=== PATIENT | female | born 1970 | race Caucasian/White ===

== ENCOUNTER 2016-05-14 10:40 | Outpatient (CLI) ==
[2014-07-10 04:29] VITALS: BMI 42.3
[2016-05-14 11:30] LABS: BASOPHILS % (AUTO) 0.4 % (0.0-3.0); EOSINOPHILS % (AUTO) 0.4 % (0.0-7.0); HEMATOCRIT 36.7 % (37.0-47.0); HEMOGLOBIN 12.4 g/dl (12.0-16.0); IMMATURE GRANULOCYTE % (AUTO) 0.2 % (0.0-5.0); LYMPHOCYTES # (AUTO) 1.3 K/uL (0.60-3.4); LYMPHOCYTES % (AUTO) 27.2 (10.0-50.0); MEAN CORPUSCULAR HEMOGLOBIN 29.6 pg (27.0-31.0); MEAN CORPUSCULAR HGB CONC 33.8 (31.8-35.4); MEAN CORPUSCULAR VOLUME 87.6 fl (81.0-99.0); MONOCYTES # (AUTO) 0.4 K/uL (0.4-2.0); MONOCYTES % (AUTO) 8.5 (0-10); NEUTROPHILS # (AUTO) 3.1 K/ul (2.0-6.9); NEUTROPHILS % (AUTO) 63.3; PLATELET COUNT 283 10^3/uL (140-440); RED BLOOD COUNT 4.19 10^6/ul (4.20-5.40); WHITE BLOOD COUNT 4.85 K/ul (4.6-10.2)
[2016-05-14 12:08] LABS: ALBUMIN 3.9 g/dL (3.4-5.0); ALBUMIN/GLOBULIN RATIO 1.15; ANION GAP 11.1; BILIRUBIN,TOTAL 0.58 mg/dL (0.00-1.20); BUN/CREATININE RATIO 12.19; CHOL/HDL RATIO 3.9 (4.5-5.5); CREATININE 0.82 mg/dL (0.60-1.30); POTASSIUM 4.1 mmol/L (3.5-5.10); TOTAL PROTEIN 7.3 g/dL (6.4-8.2)
== END 2016-05-14 10:41 | disposition home or self-care (01) ==
LOC: LAB 10:40
PROVIDERS: ATTEND Nurse Practitioner Family
DX: E66.3 Overweight (principal); F32.9 Major depressive disorder, single episode, unspecified; E03.9 Hypothyroidism, unspecified
CPT/HCPCS: 36415; 80053; 80061; 84443; 85025

== ENCOUNTER 2017-07-20 14:54 | Outpatient (CLI) ==
[2014-07-10 04:29] VITALS: BMI 42.3
== END 2017-07-20 14:55 | disposition home or self-care (01) ==
LOC: RHC-LAB 14:54
PROVIDERS: ATTEND Nurse Practitioner Family
DX: Z00.00 Encounter for general adult medical examination without abnormal findings (principal); E03.9 Hypothyroidism, unspecified
CPT/HCPCS: 36415; 80053; 80061; 84443; 85025

== ENCOUNTER 2017-07-21 12:44 | Outpatient (CLI) ==
[2014-07-10 04:29] VITALS: BMI 42.3
--- NOTE | 2017-07-22 11:34 | MAMMO ---
EXAM: Digital screening mammogram with tomosynthesis HISTORY: Screening COMPARISON: 06/23/2015 FINDINGS: Digital MLO and CC views of the right and left breast were performed. Tomosynthesis was p erformed. Computer aided detection utilized. There are scattered fibroglandular densities. There is no evidence for mass, asymmetry, distortion, or suspicious calcifications in either breast. IMPRESSION: 1. No evidence of malignancy in the right or left breast. 2. Annual screening mammogram is recommended in one year. BIRADS category 1, negative examination
== END 2017-07-21 12:45 | disposition home or self-care (01) ==
LOC: RAD 12:44
PROVIDERS: ATTEND Nurse Practitioner Family
DX: Z12.31 Encounter for screening mammogram for malignant neoplasm of breast (principal)
CPT/HCPCS: 77067

== ENCOUNTER 2018-08-09 10:19 | Outpatient (CLI) ==
[2014-07-10 04:29] VITALS: BMI 42.3
--- NOTE | 2018-08-09 10:55 | US ---
EXAM: Thyroid ultrasound. History: Hypothyroid Technique: Multiple sonographic images through the thyroid gland were obtained. Color duplex Dopple r was used to interrogate vascular flow. Findings: The right lobe of the thyroid measures 5.0 cm x 1.3 cm x 1.7 cm and demonstrates a 0.6 cm complex nod ule. 2.4 cm x 1.0 cm x 0.9 cm solid nodule versus heterogeneous thyroid tissue. The thyroid isthmus measures 0.3 cm in thickness. The left lobe of the thyroid measures 4.7 cm x 1.0 cm x 1.3 cm and demonstrates a 0.6 cm solid nodule . No extrathyroidal masses are identified. The thyroid gland is not significantly hypervascular. Impression: 1. Normal sized heterogeneous thyroid gland. 2. Bilateral thyroid nodules as detailed above. Recommend follow-up ultrasound in 6 months.
== END 2018-08-09 10:20 | disposition home or self-care (01) ==
LOC: RAD 10:19
PROVIDERS: ATTEND Nurse Practitioner Family
DX: E03.9 Hypothyroidism, unspecified (principal)

== ENCOUNTER 2018-08-10 10:07 | Outpatient (CLI) ==
[2014-07-10 04:29] VITALS: BMI 42.3
--- NOTE | 2018-08-11 10:42 | MAMMO ---
EXAM: Bilateral digital screening mammogram (2-D and 3-D) History: Screening Comparison: Bilateral mammogram 07/21/2017 Findings: MLO and CC views of bilateral breasts demonstrate scattered fibroglandular breast parenchy ma. CAD was reviewed by the radiologist. Tomosynthesis was performed. There are no dominant masses , no suspicious microcalcifications and no architectural distortion. Impression: Stable negative mammogram. Recommend followup routine screening mammography in 1 year. BIRADS 1, negative
== END 2018-08-10 10:08 | disposition home or self-care (01) ==
LOC: RAD 10:07
PROVIDERS: ATTEND Nurse Practitioner Family
DX: Z12.31 Encounter for screening mammogram for malignant neoplasm of breast (principal)

== ENCOUNTER 2024-03-23 01:05 | Observation (INO) ==
[2024-03-23] MEDS ORDERED: MOTRIN PO STA (01:19)
--- NOTE | 2024-03-23 01:23 | ED.PDOC ---
General ED Provider: Dr. BELEM HUMPHREY MD Chief Complaint: Fever Stated Complaint: Patient presents to ER from home accompanied by her son complaining of flulike symptoms: headache, congestion, all over body aches, increased thirst and urination. Reports onset was approximately 4 days ago (day after traveling to/from [place] on the train) and initially were improving however earlier today symptoms started to abruptly worsen especially around 3pm today. Says that she took Motrin 400 mg at 8 PM but symptoms continued to worsen so decided to present to nearest ER after PCP clinic instructed her to do so. No other complaints at this time. Time Seen by Provider: 03/23/24 01:14 Mode of Arrival: Walk-In Information Source: Patient Exam Limitations: No limitations Primary Care Provider: HARIKA BROOKS Referred to ED by: PCP Nursing and Triage Documentation Reviewed and Agree: Yes What is Opioid Naive?: *Opioid Naive implies the patient is not already taking opioids or not chronically receiving opioids on a daily basis. *PRN dosing is not "usually" associated with tolerance. *Patients are at higher risk of over-sedation and aspiration. What is Opioid Tolerant?: *Opioid Tolerance implies less than the expected response to an opioid. *Acquired tolerance is defined by the patient taking 60mg of oral morphine daily (or equianalgesic dose of another opioid) for 1 week or more. *Often associated with chronic pain. *May take more than usual dose to achieve desired pain control. Review of Systems Review Of Systems Constitutional: Reports Fever and Malaise All Other Systems: Reviewed and Negative (Except for those listed in the HPI above.) [facility] Medical History (Updated 03/23/24 @ 05:02 by LEROY ARGUELLO RN) Hypothyroid E03.9 - Hypothyroidism, unspecified (ICD-10) Hypertension I10 - Essential (primary) hypertension (ICD-10) Calculus of kidney N20.0 - Calculus of kidney (ICD-10) Depression F32.9 - Major depressive disorder, single episode, unspecified (ICD-10) Family History FATHER Type 1 diabetes mellitus Lung cancer, Onset Age: 62 Mother Type 1 diabetes mellitus, Onset Age: 30 Hyperlipidemia, Onset Age: 30 Hypothyroidism Hypertension Anxiety Depression Social History Smoking and tobacco status: Never smoker Alcohol intake: never Substance use type: does not use Angela/jainism: EPISCOPAL Special angela needs: No Agree to transfusion: Yes Adopted: No Caregiver/support person: No Foster care: No Household members: family Housing: house Marital status: M Lives independently: Yes Number of children: 3 Number of grandchildren: 4 Highest education level completed: high school graduate Financial difficulty paying for basics: hard service: No CHCF: No Current occupational status: unemployed Pets and animals: Yes Leisure activites: art and reading History of recent travel: No Sexually active: Yes Do you think of yourself as: straight/heterosexual Current gender identity: female Seatbelt use: always Drives intoxicated or rides with intoxicated milk pickup driver: No Water heater temperature set < 120 degrees: Yes Working smoke detector in home: Yes Fire extinguisher in home: No Carbon monoxide detector in home: No Firearms in home: No Surgical History History of surgery Lipoma right upper chest Z98.890 - Other specified postprocedural states (ICD-10) Status post hysterectomy 2009 Z90.710 - Acquired absence of both cervix and uterus (ICD-10) Female Reproductive History Menstrual Hx Hysterectomy: Yes Hx Tubal Ligation: No Physical Exam Physical Exam Appearance: Reports Ill-appearing, No pain distress and Well-nourished Ill-appearing: Moderate Pain Distress: None Eyes: Reports ROGELIO, EOMI and Conjunctiva clear ENT: Reports Ears normal, Nose normal and Oropharynx normal Neck: Supple Respiratory: Reports Airway patent, Breath sounds equal, Breath sounds diminished (R>L) and Respirations nonlabored Cardiovascular: Reports RRR, Pulses normal, No rub and No murmur GI/: Reports Soft and Nontender Musculoskeletal: Reports Normal strength and ROM intact Skin: Reports Warm, Dry and Normal color Neurological: Reports Sensation intact, Motor intact, Alert and Oriented Psychiatric: Reports Affect appropriate and Mood appropriate Course Course 03/23/24 01:35 03/23/24 01:35 Orders, Labs, Meds: Lab Review 03/23/24 03/23/24 03/23/24 01:30 01:35 01:50 WBC 10.84 H RBC 4.17 L Hgb 11.5 L Hct 35.4 L MCV 84.9 MCH 27.6 MCHC 32.5 RDW Coeff of Olesya 13.8 Plt Count 284 Immature Gran % (Auto) 1.0 Neut % (Auto) 85.4 H Lymph % (Auto) 5.8 L Hickman % (Auto) 7.5 Eos % (Auto) 0.0 Baso % (Auto) 0.3 Neut # (Auto) 9.3 H Lymph # (Auto) 0.6 Hickman # (Auto) 0.8 Eos # (Auto) 0.0 Baso # (Auto) 0.0 Immature Gran # (Auto) 0.1 Sodium 130.6 L Potassium 3.66 Chloride 96.9 L Carbon Dioxide 24.2 Anion Gap 13.16 BUN 7.6 Creatinine 0.65 Estimated GFR (MDRD) 96.00 BUN/Creatinine Ratio 11.69 Glucose 139.3 H Lactic Acid 1.01 Calcium 8.50 Total Bilirubin 1.01 AST 455.0 H ALT 321.1 H Alkaline Phosphatase 320.5 H Troponin I < 0.012 Total Protein 6.72 Albumin 3.35 L Globulin 3.37 Albumin/Globulin Ratio 0.99 Procalcitonin 1.31 H D-Dimer 2122.57 H Urine Color Dark Urine Clarity Slightly Urine pH 6.0 Ur Specific [place] >=1.030 Urine Protein 3+ H Urine Glucose (UA) Negative Urine Ketones 2+ H Urine Blood 1+ H Urine Nitrite Negative Urine Bilirubin 2+ H Urine Urobilinogen 1.0 H Ur Leukocyte Esterase Negative Urine Microscopic RBC 2-5 Urine Microscopic WBC 0-2 Ur Squamous Epith Cells 5-10 Amorphous Sediment 2+ Urine Bacteria 1+ Urine Mucus 1+ Adenovirus (PCR) B. pertussis DNA (PCR) B.parapertussis DNA PCR C. pneumoniae DNA (PCR) Coronavirus OC43 (PCR) Coronavirus HKU1 (PCR) Coronavirus 229E (PCR) Coronavirus NL63 (PCR) Human Metapneumovir PCR Influenza Type A (PCR) Influ A Molecular Assay Negative by naat Influenza B (RT-PCR) Influ B Molecular Assay Negative by naat M. pneumoniae (PCR) Parainfluenza 1 (PCR) Parainfluenza 2 (PCR) Parainfluenza 3 (PCR) Parainfluenza 4 (PCR) RSV Antigen Negative by naat RSV (PCR) Entero/Rhino (PCR) SARS-CoV-2 (PCR) SARS CoV-2 RNA Rapid CHRISTO Negative 03/23/24 02:40 WBC RBC Hgb Hct MCV MCH MCHC RDW Coeff of Olesya Plt Count Immature Gran % (Auto) Neut % (Auto) Lymph % (Auto) Hickman % (Auto) Eos % (Auto) Baso % (Auto) Neut # (Auto) Lymph # (Auto) Hickman # (Auto) Eos # (Auto) Baso # (Auto) Immature Gran # (Auto) Sodium Potassium Chloride Carbon Dioxide Anion Gap BUN Creatinine Estimated GFR (MDRD) BUN/Creatinine Ratio Glucose Lactic Acid Calcium Total Bilirubin AST ALT Alkaline Phosphatase Troponin I Total Protein Albumin Globulin Albumin/Globulin Ratio Procalcitonin D-Dimer Urine Color Urine Clarity Urine pH Ur Specific [place] Urine Protein Urine Glucose (UA) Urine Ketones Urine Blood Urine Nitrite Urine Bilirubin Urine Urobilinogen Ur Leukocyte Esterase Urine Microscopic RBC Urine Microscopic WBC Ur Squamous Epith Cells Amorphous Sediment Urine Bacteria Urine Mucus Adenovirus (PCR) Not detected B. pertussis DNA (PCR) Not detected B.parapertussis DNA PCR Not detected C. pneumoniae DNA (PCR) Not detected Coronavirus OC43 (PCR) Not detected Coronavirus HKU1 (PCR) Not detected Coronavirus 229E (PCR) Not detected Coronavirus NL63 (PCR) Not detected Human Metapneumovir PCR Not detected Influenza Type A (PCR) Not detected Influ A Molecular Assay Influenza B (RT-PCR) Not detected Influ B Molecular Assay M. pneumoniae (PCR) Not detected Parainfluenza 1 (PCR) Not detected Parainfluenza 2 (PCR) Not detected Parainfluenza 3 (PCR) Not detected Parainfluenza 4 (PCR) Not detected RSV Antigen RSV (PCR) Not detected Entero/Rhino (PCR) Not detected SARS-CoV-2 (PCR) Not detected SARS CoV-2 RNA Rapid CHRISTO Orders Category Date Time Status ADMIT OBSERVATION [PLACE PATIENT OBSERVATION] .TO ADMISSION 03/23/24 04:20 Active MEDSURG (MONITORED BED) NPO REMINDER: IMAGING ONCE CARE 03/23/24 02:28 Completed TELEMETRY MONITORING TELE CARE 03/23/24 04:20 Active ED APPLY O2 .ONCE EMERGENCY 03/23/24 01:20 Active ED MIDDLE SCHOOL COUNSELOR APPLIED .ONCE EMERGENCY 03/23/24 01:20 Active ED VITAL SIGNS .ONCE EMERGENCY 03/23/24 01:20 Active BLOOD CULTURE Stat LAB 03/23/24 02:30 Received CBC W/ AUTO DIFF Stat LAB 03/23/24 01:35 Completed COMPREHENSIVE METABOLIC PANEL Stat LAB 03/23/24 01:35 Completed D-DIMER Stat LAB 03/23/24 01:35 Completed FLU A & B MOLECULAR [FLU A/B MOLECULAR] Stat LAB 03/23/24 01:30 Completed LACTIC ACID Stat LAB 03/23/24 01:35 Completed PROCALCITONIN Stat LAB 03/23/24 01:35 Completed RESPIRATORY PANEL 2.1 (PCR) Stat LAB 03/23/24 02:40 Completed RSV Stat LAB 03/23/24 01:30 Completed SARS COV-2 RNA RAPID CHRISTO Stat LAB 03/23/24 01:30 Completed TROPONIN I Stat LAB 03/23/24 01:35 Completed URINALYSIS C & S IF INDICATED Stat LAB 03/23/24 01:50 Completed URINE CULTURE Stat LAB 03/23/24 01:50 Received Acetaminophen [Tylenol] Meds 03/23/24 01:23 Discontinued 1,000 mg PO ONCE STA Cefepime 2 gm/D5w [Maxipime 2 gm/50 ml D5w] Meds 03/23/24 02:14 Discontinued 2 gm in 50 ml IV ONCE Iohexol [Omnipaque 350 mg/ml 100Ml] Meds 03/23/24 02:41 Discontinued 100 ml IVP ONCE ONE Ketorolac Tromethamine [Toradol] Meds 03/23/24 02:42 Discontinued 30 mg IVP ONCE STA Ondansetron HCl/Pf [Zofran Sdv] Meds 03/23/24 02:52 Discontinued 4 mg IVP ONCE STA Sodium Chloride 0.9% [Sodium Chloride] 1,000 ml Meds 03/23/24 02:02 Discontinued IV BOLUS CHEST, 2 VIEWS PA & LAT Stat RADS 03/23/24 01:20 Completed CTA CHEST PE PROTOCOL Stat RADS 03/23/24 02:28 Completed Medications Generic Name Dose Route Start Last Admin Trade Name Freq PRN Reason Stop Dose Admin Acetaminophen 650 mg 03/23/24 06:34 Acetaminophen 325 Mg Tablet PO Q4H PRN Mild Pain Azithromycin 500 mg 03/23/24 09:00 Azithromycin 250 Mg Tablet PO 03/26/24 08:59 DAILY KIRK Sodium Chloride 1,000 mls @ 100 mls/hr 03/23/24 07:00 Sodium Chloride IV .Q10H KIRK CEFTRIAXONE/D5W 1 GM PREMIX 1 gm in 50 mls @ 100 mls/hr 03/23/24 07:00 Rocephin 1 Gm/50 Ml D5w IV 03/26/24 06:59 DAILY KIRK Discontinued Medications Generic Name Dose Route Start Last Admin Trade Name Freq PRN Reason Stop Dose Admin Acetaminophen 1,000 mg 03/23/24 01:23 03/23/24 01:42 Acetaminophen 500 Mg Tablet PO 03/23/24 01:24 1,000 mg ONCE STA Administration Sodium Chloride 1,000 mls @ 1,000 mls/hr 03/23/24 02:02 03/23/24 03:00 Sodium Chloride IV 03/23/24 03:01 Infused BOLUS STA Infusion CEFEPIME 2 GM/D5W 2 gm in 50 mls @ 100 mls/hr 03/23/24 02:14 03/23/24 03:03 Maxipime 2 Gm/50 Ml D5w IV 03/23/24 02:43 100 mls/hr ONCE STA Administration Iohexol 100 ml 03/23/24 02:41 03/23/24 02:51 Iohexol 350 Mg/Ml 100ml IVP 03/23/24 02:42 100 ml ONCE ONE Administration Ketorolac Tromethamine 30 mg 03/23/24 02:42 03/23/24 03:04 Ketorolac Tromethamine 30 Mg/Ml Vial IVP 03/23/24 02:43 30 mg ONCE STA Administration Ondansetron HCl 4 mg 03/23/24 02:52 03/23/24 03:03 Ondansetron Hcl/Pf 4 Mg/2 Ml Sdv IVP 03/23/24 02:53 4 [place] [address] Diagnostic Imaging Diagnostic Imaging Report : [id number] Signed Patient: PHILLIP PULIDO Acct:[id number] Medical Record: [id number] : 1970 Loc: ED Room/Bed: Age/Sex: 53 / F ADM Status: REG ER Date of Service: 03/23/24 Ordering Physician: BELEM HUMPHREY MD Procedure(s): CHEST, 2 VIEWS PA & LAT Report Number(s): [id number] Accession Number(s): [id number] cc: HARIKA BROOKS ; BELEM HUMPHREY MD EXAM: TWO-VIEW CHEST HISTORY: Shortness of breath COMPARISON: none FINDINGS / impression:: The cardiomediastinal silhouette is normal.. Peripheral consolidation is seen within the lingula. There is a small right pleural effusion. Dense consolidation is seen within the right middle lobe and lower lobe. No acute osseous abnormalities. Dictated By: KEVAN DOSHI Signed By: KEVAN DOSHI Dictated Date/Time: 03/23/24352 Transcribed Date/Time: 03/23/24352 Signed Date/Time: 03/23/24 [address] [place] [address] Report : [id number] Signed Patient: PHILLIP PULIDO Acct:[id number] Medical Record: [id number] : 1970 Loc: ED Room/Bed: Age/Sex: 53 / F ADM Status: REG ER Date of Service: 03/23/24 Ordering Physician: BELEM HUMPHREY MD Procedure(s): CTA CHEST PE PROTOCOL Report Number(s): [id number] Accession Number(s): [id number] cc: HARIKA BROOKS NICOLE MD EXAM: CTA CHEST HISTORY: Dyspnea COMPARISON: None. FINDINGS: Postcontrast helical imaging was obtained through the thorax utilizing 1.2-mm collimation. Sagittal and coronal reconstructions were imaged and reviewed. There are subcentimeter prevascular and pretracheal lymph nodes. There is a 12 mm right hilar lymph node. Subcarinal lymphadenopathy measures upwards of 1.6 cm. The ascending aorta is ectatic measuring 3.4 cm. There is no evidence of pulmonary embolus. There is a small right pleural effusion which extends into the fissure with adjacent consolidation . Peripheral consolidation is seen within the left upper lobe and lingula. . Consolidation/atelectasis is seen predominately in the right middle with milder changes in the lower lobe.. Bone windows reveals no lytic or blastic lesions. IMPRESSION: No evidence of pulmonary embolus. Small right pleural effusion with fissural extension. Mild adjacent consolidation/pneumonia Peripheral consolidation/pneumonia seen within the left upper lobe and lingula. Consolidation/atelectasis seen predominately in the right middle lobe with mild lower lobe changes. Mediastinal and hilar lymphadenopathy likely reactive in nature. All CT scans are performed using dose optimization techniques as appropriate to the performed exam and include at least one of the following: Automated exposure control, adjustment of the mA and/or kV according to size, and the use of iterative reconstruction technique. Dictated By: KEVAN DOSHI Signed By: KEVAN DOSHI Dictated Date/Time: 03/23/24312 Transcribed Date/Time: 03/23/24312 Signed Date/Time: 03/23/24336 Vital Signs: Temp Pulse Resp BP Pulse Ox 03/23/24 01:07 101.0 F H 97 20 144/84 H 95 04:16 -spoke with on-call hospitalist (Gracie Hastings NP) regarding patient's status and current workup and management for community-acquired pneumonia, hyponatremia, transaminitis. Pt is ill-appearing with R>L diminished breath sounds. Hemodynamically stable with fever noted on exam. Labs remarkable for WBC 10.8, Na 131, Cl 97, AST 455, ALT 321, ALP 321, Procal 1.31, D-dimer 2122. Patient given Acetaminophen 1000, Toradol 30, NS 1L bolus, Cefepime 2g, Zofran 4 and is feeling somewhat better. Hospitalist agreed to admission for further workup and management. 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
[2024-03-23 01:41] LABS: BASOPHILS % (AUTO) 0.3 % (0.0-3.0); HEMATOCRIT 35.4 % (37.0-47.0); HEMOGLOBIN 11.5 g/dl (12.0-16.0); IMMATURE GRANULOCYTE # (AUTO) 0.1 (0.0-1.0); LYMPHOCYTES # (AUTO) 0.6 K/uL (0.60-3.4); LYMPHOCYTES % (AUTO) 5.8 (10.0-50.0); MEAN CORPUSCULAR HEMOGLOBIN 27.6 pg (27.0-31.0); MEAN CORPUSCULAR HGB CONC 32.5 (31.8-35.4); MEAN CORPUSCULAR VOLUME 84.9 fl (81.0-99.0); MONOCYTES # (AUTO) 0.8 K/uL (0.4-2.0); MONOCYTES % (AUTO) 7.5 (0-10); NEUTROPHILS # (AUTO) 9.3 K/ul (2.0-6.9); NEUTROPHILS % (AUTO) 85.4 % (42.2-75.2); PLATELET COUNT 284 10^3/uL (140-440); RDW COEFFICIENT OF VARIATION 13.8 % (11.6-14.8); RED BLOOD COUNT 4.17 10^6/ul (4.20-5.40); WHITE BLOOD COUNT 10.84 K/ul (4.6-10.2)
[2024-03-23] MEDS: TYLENOL PO STA (01:42)
[2024-03-23 01:54] LABS: ALANINE AMINOTRANSFERASE 321.1 U/L (0-35); ALBUMIN 3.35 g/dL (3.5-5.0); ALKALINE PHOSPHATASE 320.5 U/L (38-126); BILIRUBIN,TOTAL 1.01 mg/dL (0.2-1.3); BLOOD UREA NITROGEN 7.6 mg/dL (7-17); CALCIUM 8.5 mg/dL (8.4-10.2); CARBON DIOXIDE 24.2 mmol/L (22-30.0); CHLORIDE 96.9 mmol/L (98-107); CREATININE 0.65 mg/dL (0.60-1.30); GLUCOSE 139.3 mg/dL (74-106); POTASSIUM 3.66 mmol/L (3.5-5.1); SODIUM 130.6 mmol/L (134.5-145); TOTAL PROTEIN 6.72 g/dL (6.3-8.2)
[2024-03-23 01:55] LABS: BILIRUBIN,URINE 2+ (NEGATIVE); CLARITY,URINE Slightly (CLEAR); COLOR,URINE Dark (YELLOW); GLUCOSE, URINE (UA) Negative (NEGATIVE); KETONES,URINE 2+ (NEGATIVE); LEUKOCYTE ESTERASE ,URINE Negative (NEGATIVE); NITRITE,URINE Negative (NEGATIVE); PROTEIN,URINE 3+ (NEGATIVE); URINE, BLOOD 1+ (NEGATIVE)
[2024-03-23 02:00] LABS: AMORPHOUS SEDIMENT,UR 2+ (NOT PRESENT); BACTERIA,URINE 1+ (NOT PRESENT); MUCUS,URINE 1+ (NOT PRESENT); URINE WBC, MICROSCOPIC 0-2 (0-2)
[2024-03-23] MEDS: SODIUM CHLORIDE 1,000 ML IV STA (02:00)
[2024-03-23 02:03] LABS: MOLECULAR FLU A NEGATIVE BY NAAT (NEGATIVE); MOLECULAR FLU B NEGATIVE BY NAAT (NEGATIVE); RSV MOLECULAR NEGATIVE BY NAAT (NEGATIVE); SARS COV-2 RNA RAPID NAAT NEGATIVE (NEGATIVE)
[2024-03-23] MEDS: OMNIPAQUE 350 MG/ML 100ML IVP ONE (02:51)
[2024-03-23] MEDS: ZOFRAN SDV IVP STA (03:03)
[2024-03-23] MEDS: MAXIPIME 2 GM/50 ML D5W 2 GM/50 ML BAG IV STA (03:03)
[2024-03-23] MEDS: TORADOL IVP STA (03:04)
[2024-03-23 03:37] LABS: ADENOVIRUS (PCR) NOT DETECTED (NOT DETECT); BORDETELLA PARAPERTUSSIS (PCR) NOT DETECTED (NOT DETECT); BORDETELLA PERTUSSIS (PCR) NOT DETECTED (NOT DETECT); CHLAMYDIA PNEUMONIAE (PCR) NOT DETECTED (NOT DETECT); CORONAVIRUS 229E (PCR) NOT DETECTED (NOT DETECT); CORONAVIRUS HKU1 (PCR) NOT DETECTED (NOT DETECT); CORONAVIRUS NL63 (PCR) NOT DETECTED (NOT DETECT); CORONAVIRUS OC43 (PCR) NOT DETECTED (NOT DETECT); HUMAN METAPNEUMOVIRUS (PCR) NOT DETECTED (NOT DETECT); HUMAN RHINOVIRUS/ENTEROV (PCR) NOT DETECTED (NOT DETECT); INFLUENZA B (PCR) NOT DETECTED (NOT DETECT); MYCOPLASMA PNEUMONIAE (PCR) NOT DETECTED (NOT DETECT); PARAINFLUENZA VIRUS 1 (PCR) NOT DETECTED (NOT DETECT); PARAINFLUENZA VIRUS 2 (PCR) NOT DETECTED (NOT DETECT); PARAINFLUENZA VIRUS 3 (PCR) NOT DETECTED (NOT DETECT); PARAINFLUENZA VIRUS 4 (PCR) NOT DETECTED (NOT DETECT); RESPIRATORY SYNCYTIAL V (PCR) NOT DETECTED (NOT DETECT); SARS_COV_2 (PCR) NOT DETECTED (NOT DETECT)
--- NOTE | 2024-03-23 03:37 | CT ---
EXAM: CTA CHEST HISTORY: Dyspnea COMPARISON: None. FINDINGS: Postcontrast helical imaging was obtained through the thorax utilizing 1.2-mm collimation. Sagittal and coronal reconstructions were imaged and reviewed. There are subcentimeter prevascular and pretracheal lymph nodes. There is a 12 mm right hilar lymph node. Subcarinal lymphadenopathy m easures upwards of 1.6 cm. The ascending aorta is ectatic measuring 3.4 cm. There is no evidence of p ulmonary embolus. There is a small right pleural effusion which extends into the fissure with adjace nt consolidation . Peripheral consolidation is seen within the left upper lobe and lingula. . Conso lidation/atelectasis is seen predominately in the right middle with milder changes in the lower lobe. . Bone windows reveals no lytic or blastic lesions. IMPRESSION: No evidence of pulmonary embolus. Small right pleural effusion with fissural extension. Mild adjacent consolidation/pneumonia Peripheral consolidation/pneumonia seen within the left upper lobe and lingula. Consolidation/atelectasis seen predominately in the right middle lobe with mild lower lobe changes. Mediastinal and hilar lymphadenopathy likely reactive in nature. All CT scans are performed using dose optimization techniques as appropriate to the performed exam an d include at least one of the following: Automated exposure control, adjustment of the mA and/or kV according t o size, and the use of iterative reconstruction technique.
--- NOTE | 2024-03-23 04:01 | DI ---
EXAM: TWO-VIEW CHEST HISTORY: Shortness of breath COMPARISON: none FINDINGS / impression:: The cardiomediastinal silhouette is normal.. Peripheral consolidation is se en within the lingula. There is a small right pleural effusion. Dense consolidation is seen within t he right middle lobe and lower lobe. No acute osseous abnormalities.
[2024-03-23 05:18] VITALS: BMI 40.4
[2024-03-23] MEDS ORDERED: ROCEPHIN 1 GM/50 ML D5W 1 GM/50 ML BAG IV SCH (07:00)
[2024-03-23] MEDS: ZITHROMAX PO SCH (08:22)
[2024-03-23] MEDS: SODIUM CHLORIDE 1,000 ML IV SCH ×2 (08:23→10:06)
[2024-03-23] MEDS: DUONEB NEB SCH (08:45)
[2024-03-23] MEDS: TYLENOL PO PRN (09:05)
[2024-03-23] MEDS: SYNTHROID PO SCH (09:05)
[2024-03-23] MEDS: LEXAPRO PO SCH (09:05)
[2024-03-23] MEDS: TORADOL IVP PRN (09:48)
[2024-03-23] MEDS: ZOFRAN SDV IVP PRN (09:49)
[2024-03-23] MEDS: LASIX IVP ONE (09:49)
--- NOTE | 2024-03-23 09:54 | PCM ---
Date of Service Date Seen by Provider: 03/23/24 Time Seen by Provider: 08:45 Admit Day/Time Admission Date: 03/23/24 Admission Time: 04:20 Reason for Admission Chief Complaint: PNA, HYPONATREMIA, ELEVATED LFTS Hospital Provider Hospital Provider: KAITLYN ANDERSON, [facility] [place] Physician Primary Care Physician: HARIKA BROOKS History of Present Illness History of Present Illness: 53 yo female presented to the ER with complaints of fever, shortness of breath, cough, body aches, and chest pressure when she takes a breath. States that she went to [place] 4-5 days ago and has been sick since. States cough is nonproductive and just blanco in her chest. Fever has been as high as 101. Treated with tylenol. Found to have R upper lobe pneumonia on chest x-ray and new small pleural effusion on the left. Has taken BP medication in the past for htn but does not currently. No history of HF. Admitted to med/surg observation Case Discussed With Case Discussed With: Patient's case was discussed with the ER Physicians, Dr. Lima. [facility] Medical History Hypothyroid E03.9 - Hypothyroidism, unspecified (ICD-10) Hypertension I10 - Essential (primary) hypertension (ICD-10) Calculus of kidney N20.0 - Calculus of kidney (ICD-10) Depression F32.9 - Major depressive disorder, single episode, unspecified (ICD-10) Surgical History History of surgery Lipoma right upper chest Z98.890 - Other specified postprocedural states (ICD-10) Status post hysterectomy 2009 Z90.710 - Acquired absence of both cervix and uterus (ICD-10) Family History FATHER Type 1 diabetes mellitus Lung cancer, Onset Age: 62 Mother Type 1 diabetes mellitus, Onset Age: 30 Hyperlipidemia, Onset Age: 30 Hypothyroidism Hypertension Anxiety Depression Social History Smoking and tobacco status: Never smoker Alcohol intake: never Substance use type: does not use Angela/zoroastrian: SYNAGOGUE Special angela needs: No Agree to transfusion: Yes Adopted: No Caregiver/support person: No Foster care: No Household members: family Housing: house Marital status: M Lives independently: Yes Number of children: 3 Number of grandchildren: 4 Highest education level completed: high school graduate Financial difficulty paying for basics: hard service: No correction: No Current occupational status: unemployed Pets and animals: Yes Leisure activites: art and reading History of recent travel: No Sexually active: Yes Do you think of yourself as: straight/heterosexual Current gender identity: female Seatbelt use: always Drives intoxicated or rides with intoxicated fire truck driver: No Water heater temperature set < 120 degrees: Yes Working smoke detector in home: Yes Fire extinguisher in home: No Carbon monoxide detector in home: No Firearms in home: No Allergies Allergies Allergy/AdvReac Type Severity Reaction Status Date / Time clonidine AdvReac Intermediate Chest Verified 03/23/24 01:15 Tightness Current Medications Home Medications levothyroxine 50 mcg tablet (Synthroid) 50 mcg PO DAILY #90 tab-caps 07/20/17 [History Confirmed 03/23/24 Last Taken 03/22/24] folic acid 1 mg tablet 1 mg PO QDAY 02/13/20 [History Confirmed 03/23/24 Last Taken 03/22/24] berberine chloride 500 mg capsule 500 mg PO DAILY 01/25/24 [History Confirmed 03/23/24 Last Taken 03/22/24] dextroamphetamine-amphetamine 20 mg tablet (Adderall) 20 mg PO BID #60 tabs 01/25/24 [Rx Confirmed 03/23/24 Last Taken 03/22/24] escitalopram oxalate 20 mg tablet 20 mg PO QDAY #30 tabs 01/25/24 [Rx Confirmed 03/23/24 Last Taken 03/22/24] magnesium 200 mg tablet 200 mg PO QDAY 01/25/24 [History Confirmed 03/23/24 Last Taken 03/22/24] vitamin [id number] B1 1,000 mcg-100 mg/mL injection solution 1 ml IM WEEKLY 01/25/24 [History Confirmed 03/23/24 Last Taken Unknown] trazodone 50 mg tablet 50 mg PO QHS 03/23/24 [History Confirmed 03/23/24 Last Taken 03/22/24] Home Acetaminophen (Acetaminophen 325 Mg Tablet) 650 mg PO Q4H PRN PRN Reason: Mild Pain Last Admin: 03/23/24 09:05 Dose: 650 mg Albuterol/Ipratropium (Ipratropium/Albuterol Vial.Neb) 3 ml NEB RTQ6H FOR[facility], [facility] Last Admin: 03/23/24 08:45 Dose: 3 ml Azithromycin (Azithromycin 250 Mg Tablet) 500 mg PO DAILY KIRK Stop: 03/26/24 08:59 Last Admin: 03/23/24 08:22 Dose: 500 mg Escitalopram Oxalate (Escitalopram Oxalate 10 Mg Tablet) 20 mg PO DAILY [facility], [facility]1983 Last Admin: 03/23/24 09:05 Dose: 20 mg CEFTRIAXONE/D5W 1 GM PREMIX (Rocephin 1 Gm/50 Ml D5w) 1 gm in 50 mls @ 100 mls/hr IV DAILY [facility]1983 Stop: 03/26/24 10:59 Sodium Chloride (Sodium Chloride) 1,000 mls @ 50 mls/hr IV .Q20H [facility], [facility] Last Admin: 03/23/24 10:06 Dose: Not Given Ketorolac Tromethamine (Ketorolac Tromethamine 15 Mg/Ml Vial) 15 mg IVP Q6HR PRN PRN Reason: Pain Stop: 03/27/24 09:20 Last Admin: 03/23/24 09:48 Dose: 15 mg Levothyroxine Sodium (Levothyroxine Sodium 50 Mcg Tablet) 50 mcg PO QDAC2 [facility] Last Admin: 03/23/24 09:05 Dose: 50 mcg Methylprednisolone Sodium Succinate (Methylprednisolone Sod Succ/Pf 40 Mg/Ml Vial) 40 mg IVP Q8HR [facility] Non-Formulary Medication (Dextroamphetamine-Amphetamine [Adderall]) 20 mg PO BID [facility] Last Admin: 03/23/24 09:07 Dose: Not Given Ondansetron HCl (Ondansetron Hcl/Pf 4 Mg/2 Ml Sdv) 4 mg IVP Q6H PRN PRN Reason: Nausea / Vomiting Last Admin: 03/23/24 09:49 Dose: 4 mg Trazodone HCl (Trazodone Hcl 50 Mg Tablet) 50 mg PO BEDTIME [facility] Discontinued Medications Acetaminophen (Acetaminophen 500 Mg Tablet) 1,000 mg PO ONCE STA Stop: 03/23/24 01:24 Last Admin: 03/23/24 01:42 Dose: 1,000 mg Furosemide (Furosemide Inj 20 Mg/2 Ml Vial) 20 mg IVP ONCE ONE Stop: 03/23/24 09:27 Last Admin: 03/23/24 09:49 Dose: 20 mg Sodium Chloride (Sodium Chloride) 1,000 mls @ 1,000 mls/hr IV BOLUS STA Stop: 03/23/24 03:01 Last Infusion: 03/23/24 03:00 Dose: Infused CEFEPIME 2 GM/D5W (Maxipime 2 Gm/50 Ml D5w) 2 gm in 50 mls @ 100 mls/hr IV ONCE STA Stop: 03/23/24 02:43 Last Admin: 03/23/24 03:03 Dose: 100 mls/hr Sodium Chloride (Sodium Chloride) 1,000 mls @ 100 mls/hr IV .Q10H KIRK Last Admin: 03/23/24 08:23 Dose: 100 mls/hr Iohexol (Iohexol 350 Mg/Ml 100ml) 100 ml IVP ONCE ONE Stop: 03/23/24 02:42 Last Admin: 03/23/24 02:51 Dose: 100 ml Ketorolac Tromethamine (Ketorolac Tromethamine 30 Mg/Ml Vial) 30 mg IVP ONCE STA Stop: 03/23/24 02:43 Last Admin: 03/23/24 03:04 Dose: 30 mg Ondansetron HCl (Ondansetron Hcl/Pf 4 Mg/2 Ml Sdv) 4 mg IVP ONCE STA Stop: 03/23/24 02:53 Last Admin: 03/23/24 03:03 Dose: 4 mg Opioid Naive vs. Tolerant Does Patient Take Opioids?: No Is Patient Opioid Naive?: Yes What is Opioid Naive?: *Opioid Naive implies the patient is not already taking opioids or not chronical ly receiving opioids on a daily basis. *PRN dosing is not "usually" associated with tolerance. *Patients are at higher risk of over-sedation and aspiration. Is Patient Opioid Tolerant?: No What is Opioid Tolerant?: *Opioid Tolerance implies less than the expected response to an opioid. *Acquired tolerance is defined by the patient taking 60mg of oral morphine daily (or equianalgesic dose of another opioid) for 1 week or more. *Often associated with chronic pain. *May take more than usual dose to achieve desired pain control. Review of Systems Constitutional: Reports Fever, Fatigue and Weakness Head: Reports Normocephalic Eyes: Reports No symptoms Ears: Reports No symptoms Nose: Reports No symptoms Mouth: Reports No symptoms Throat: Reports No symptoms Cardiovascular: Reports Chest Pressure Respiratory: Reports Cough and Shortness of air Gastrointestinal: Reports Nausea Genitourinary: Reports No Symptoms Musculoskeletal: Reports Muscle Pain (aches) Endocrine: Reports No symptoms Hematology: Reports No symptoms Immunology: Reports No symptoms Neurological: Reports No symptoms Psychiatric: Reports No symptoms Physical examination Most Recent Vital Signs: Most Recent Vital Signs Temperature 97.0 F L 03/23/24 04:47 Temperature Source Oral 03/23/24 04:47 Temperature Source Temporal Artery Scan 03/23/24 01:07 Pulse Rate 73 03/23/24 04:47 Respiratory Rate 20 03/23/24 04:47 Blood Pressure 144/84 H 03/23/24 01:07 Blood Pressure Left Arm 129/71 03/23/24 04:47 Blood Pressure Position Supine 03/23/24 04:47 O2 Sat by Pulse Oximetry 96 03/23/24 04:47 Oxygen Delivery Method Room Air 03/23/24 09:00 Height 5 ft 7 in 03/23/24 04:47 Weight 117.2 kg 03/23/24 04:47 Telemetry Type Remote Telemetry 03/23/24 05:06 Telemetry Monitoring Started 03/23/24 05:06 Telemetry Heart Rate 74 03/23/24 05:06 Telemetry SPO2 92 L 03/23/24 05:06 EKG TN Interval 0.17 03/23/24 05:06 EKG QRS Interval 0.07 03/23/24 05:06 Telemetry Strip Reading Sinus RHythm 03/23/24 05:06 Appearance: Positive No Apparent Distress and Alert and Oriented x3 Skin: Positive Warm and Good Turgor HEENT: Positive Normocephalic and PERRLA Neck: Positive Supple and Midline Trachea Chest/Lungs: Positive Symmetrical With Equal Breath Sounds and Rhonci (Bilateral upper lobe, crackles to L lower lobe) Heart: Positive RRR and Pulses Normal GI/: Positive Soft, Nontender, Bowel Sounds Normal and No Distention Musculoskeletal: Positive Not Examined Extremities: Positive Intact Peripheral Pulses, Stable Joints Without Laxity and Good ROM in All Joints Neurological: Positive Sensation Intact, Motor intact, Alert, Oriented and Muscle Strength 5/5 in Upper and Lower Extremities Bilaterally Labs This Visit Labs This Visit: Labs This Visit 03/23/24 03/23/24 03/23/24 01:30 01:35 01:50 WBC 10.84 H RBC 4.17 L Hgb 11.5 L Hct 35.4 L MCV 84.9 MCH 27.6 MCHC 32.5 RDW Coeff of Olesya 13.8 Plt Count 284 Immature Gran % (Auto) 1.0 Neut % (Auto) 85.4 H Lymph % (Auto) 5.8 L [place] % (Auto) 7.5 Eos % (Auto) 0.0 Baso % (Auto) 0.3 Neut # (Auto) 9.3 H Lymph # (Auto) 0.6 [place] # (Auto) 0.8 Eos # (Auto) 0.0 Baso # (Auto) 0.0 Immature Gran # (Auto) 0.1 Sodium 130.6 L Potassium 3.66 Chloride 96.9 L Carbon Dioxide 24.2 Anion Gap 13.16 BUN 7.6 Creatinine 0.65 Estimated GFR (MDRD) 96.00 BUN/Creatinine Ratio 11.69 Glucose 139.3 H Lactic Acid 1.01 Calcium 8.50 Total Bilirubin 1.01 AST 455.0 H ALT 321.1 H Alkaline Phosphatase 320.5 H Troponin I < 0.012 Total Protein 6.72 Albumin 3.35 L Globulin 3.37 Albumin/Globulin Ratio 0.99 Procalcitonin 1.31 H D-Dimer 2122.57 H Urine Color Dark Urine Clarity Slightly Urine pH 6.0 Ur Specific [place] >=1.030 Urine Protein 3+ H Urine Glucose (UA) Negative Urine Ketones 2+ H Urine Blood 1+ H Urine Nitrite Negative Urine Bilirubin 2+ H Urine Urobilinogen 1.0 H Ur Leukocyte Esterase Negative Urine Microscopic RBC 2-5 Urine Microscopic WBC 0-2 Ur Squamous Epith Cells 5-10 Amorphous Sediment 2+ Urine Bacteria 1+ Urine Mucus 1+ Adenovirus (PCR) B. pertussis DNA (PCR) B.parapertussis DNA PCR C. pneumoniae DNA (PCR) Coronavirus OC43 (PCR) Coronavirus HKU1 (PCR) Coronavirus 229E (PCR) Coronavirus NL63 (PCR) Human Metapneumovir PCR Influenza Type A (PCR) Influ A Molecular Assay Negative by naat Influenza B (RT-PCR) Influ B Molecular Assay Negative by naat M. pneumoniae (PCR) Parainfluenza 1 (PCR) Parainfluenza 2 (PCR) Parainfluenza 3 (PCR) Parainfluenza 4 (PCR) RSV Antigen Negative by naat RSV (PCR) Entero/Rhino (PCR) SARS-CoV-2 (PCR) SARS CoV-2 RNA Rapid CHRISTO Negative 03/23/24 02:40 WBC RBC Hgb Hct MCV MCH MCHC RDW Coeff of Olesya Plt Count Immature Gran % (Auto) Neut % (Auto) Lymph % (Auto) [place] % (Auto) Eos % (Auto) Baso % (Auto) Neut # (Auto) Lymph # (Auto) [place] # (Auto) Eos # (Auto) Baso # (Auto) Immature Gran # (Auto) Sodium Potassium Chloride Carbon Dioxide Anion Gap BUN Creatinine Estimated GFR (MDRD) BUN/Creatinine Ratio Glucose Lactic Acid Calcium Total Bilirubin AST ALT Alkaline Phosphatase Troponin I Total Protein Albumin Globulin Albumin/Globulin Ratio Procalcitonin D-Dimer Urine Color Urine Clarity Urine pH Ur Specific [place] Urine Protein Urine Glucose (UA) Urine Ketones Urine Blood Urine Nitrite Urine Bilirubin Urine Urobilinogen Ur Leukocyte Esterase Urine Microscopic RBC Urine Microscopic WBC Ur Squamous Epith Cells Amorphous Sediment Urine Bacteria Urine Mucus Adenovirus (PCR) Not detected B. pertussis DNA (PCR) Not detected B.parapertussis DNA PCR Not detected C. pneumoniae DNA (PCR) Not detected Coronavirus OC43 (PCR) Not detected Coronavirus HKU1 (PCR) Not detected Coronavirus 229E (PCR) Not detected Coronavirus NL63 (PCR) Not detected Human Metapneumovir PCR Not detected Influenza Type A (PCR) Not detected Influ A Molecular Assay Influenza B (RT-PCR) Not detected Influ B Molecular Assay M. pneumoniae (PCR) Not detected Parainfluenza 1 (PCR) Not detected Parainfluenza 2 (PCR) Not detected Parainfluenza 3 (PCR) Not detected Parainfluenza 4 (PCR) Not detected RSV Antigen RSV (PCR) Not detected Entero/Rhino (PCR) Not detected SARS-CoV-2 (PCR) Not detected SARS CoV-2 RNA Rapid CHRISTO Imaging Imaging: EXAM: CTA CHEST FINDINGS: Postcontrast helical imaging was obtained through the thorax utilizing 1.2-mm collimation. Sagittal and coronal reconstructions were imaged and reviewed. There are subcentimeter prevascular and pretracheal lymph nodes. There is a 12 mm right hilar lymph node. Subcarinal lymphadenopathy measures upwards of 1.6 cm. The ascending aorta is ectatic measuring 3.4 cm. There is no evidence of pulmonary embolus. There is a small right pleural effusion which extends into the fissure with adjacent consolidation . Peripheral consolidation is seen within the left upper lobe and lingula. . Consolidation/atelectasis is seen predominately in the right middle with milder changes in the lower lobe.. Bone windows reveals no lytic or blastic lesions. IMPRESSION: No evidence of pulmonary embolus. Small right pleural effusion with fissural extension. Mild adjacent consolidation/pneumonia Peripheral consolidation/pneumonia seen within the left upper lobe and lingula. Consolidation/atelectasis seen predominately in the right middle lobe with mild lower lobe changes. Mediastinal and hilar lymphadenopathy likely reactive in nature. EXAM: TWO-VIEW CHEST FINDINGS / impression:: The cardiomediastinal silhouette is normal.. Peripheral consolidation is seen within the lingula. There is a small right pleural effusion. Dense consolidation is seen within the right middle lobe and lower lobe. No acute osseous abnormalities Review Statement Review Statement: I have independently reviewed and interpreted the labs/EKGs/imaging that were ordered by the ER provider. I have reviewed all outside records that are available currently in our EMR including imaging/notes/labs from previous visits. Plan Plan: 1. Community Acquired Pneumonia - rocephin, azith, steroids, nebs, checking strep pneumo, MRSA, and legionella; will culture sputum when patient begins expectorating 2. Pleural effusion - no previous imaging noted; htn in past but not on medications now; giving 1 dose of lasix due to chest pressure, if no improvement will complete echo inpatient vs outpatient 3. Hyponatremia - mild, NS given in ER, NS@50mL/hr now 4. Acute Transaminitis - likely due to #1, trend and monitor 5. Anxiety/Depression/ADHD - chronic, continue home medications DVT Prophylaxis: Ambulation Time Spent: Greater than 80 minutes spent with patient, 50% of the time spent with this patient was devoted to counseling and coordination of care. Advanced Care Plannin minutes spent discussing advance care planning. Disposition: Admit to: Med/surg Observation Full code Discussed Plan of Care with Dr. Meli Grajeda. Medications Medication Orders: Medications Ordered Category Date Time Status Acetaminophen [Tylenol] Meds 03/23/24 06:34 Active 650 mg PO Q4H PRN Azithromycin [Zithromax] Meds 03/23/24 09:00 Active 500 mg PO DAILY Ceftriaxone/D5w 1 gm Premix [Rocephin 1 gm/50 ml D5w] Meds 03/23/24 11:00 Active 1 gm in 50 ml IV DAILY Escitalopram Oxalate [Lexapro] Meds 03/23/24 09:00 Active 20 mg PO DAILY Ipratropium/Albuterol Neb [Duoneb] Meds 03/23/24 08:35 Active 3 ml NEB RTQ6H Ketorolac Tromethamine [Toradol] Meds 03/23/24 09:20 Active 15 mg IVP Q6HR PRN Levothyroxine Sodium [Synthroid] Meds 03/23/24 09:00 Active 50 mcg PO QDAC2 Methylprednisolone Sod Succ/Pf [Solu-Medrol 40 mg] Meds 03/23/24 13:00 Active 40 mg IVP Q8HR Ondansetron HCl/Pf [Zofran Sdv] Meds 03/23/24 09:35 Ordered 4 mg IVP Q6H PRN Sodium Chloride 0.9% [Sodium Chloride] 1,000 ml Meds 03/23/24 07:00 Active IV 100 mls/hr Trazodone HCl [Desyrel] Meds 03/23/24 21:00 Active 50 mg PO BEDTIME dextroamphetamine-amphetamine [Adderall] Meds 03/23/24 09:00 Active 20 mg PO BID
[2024-03-23] MEDS: ROCEPHIN 1 GM/50 ML D5W 1 GM/50 ML BAG IV SCH (11:26)
[2024-03-23] MEDS ORDERED: DUONEB NEB SCH (12:00)
[2024-03-23] MEDS: SOLU-MEDROL 40 MG IVP SCH (13:38)
[2024-03-23 15:45] LABS: ALANINE AMINOTRANSFERASE 277.6 U/L (0-35); ALBUMIN 3.06 g/dL (3.5-5.0); ALKALINE PHOSPHATASE 295.4 U/L (38-126); ASPARTATE AMINO TRANSFERASE 201.7 U/L (14-36); BILIRUBIN,TOTAL 1.03 mg/dL (0.2-1.3); BLOOD UREA NITROGEN 6.6 mg/dL (7-17); CALCIUM 8.23 mg/dL (8.4-10.2); CARBON DIOXIDE 25.1 mmol/L (22-30.0); CHLORIDE 101.4 mmol/L (98-107); CREATININE 0.53 mg/dL (0.60-1.30); POTASSIUM 3.59 mmol/L (3.5-5.1); SODIUM 134.3 mmol/L (134.5-145); TOTAL PROTEIN 6.22 g/dL (6.3-8.2)
[2024-03-23] MEDS: DESYREL PO SCH (20:23)
[2024-03-24 05:40] LABS: HEMATOCRIT 34.7 % (37.0-47.0); HEMOGLOBIN 11.1 g/dl (12.0-16.0); MEAN CORPUSCULAR HEMOGLOBIN 27.5 pg (27.0-31.0); MEAN CORPUSCULAR VOLUME 85.9 fl (81.0-99.0); PLATELET COUNT 306 10^3/uL (140-440); RDW COEFFICIENT OF VARIATION 14.4 % (11.6-14.8); RED BLOOD COUNT 4.04 10^6/ul (4.20-5.40); WHITE BLOOD COUNT 10.82 K/ul (4.6-10.2)
[2024-03-24 06:06] LABS: ALANINE AMINOTRANSFERASE 412.8 U/L (0-35); ALBUMIN 3.26 g/dL (3.5-5.0); ASPARTATE AMINO TRANSFERASE 302.1 U/L (14-36); BILIRUBIN,TOTAL 0.37 mg/dL (0.2-1.3); BLOOD UREA NITROGEN 9.7 mg/dL (7-17); CALCIUM 8.72 mg/dL (8.4-10.2); CARBON DIOXIDE 27.3 mmol/L (22-30.0); CHLORIDE 100.4 mmol/L (98-107); CREATININE 0.53 mg/dL (0.60-1.30); GLUCOSE 195.6 mg/dL (74-106); POTASSIUM 4.04 mmol/L (3.5-5.1); SODIUM 136.2 mmol/L (134.5-145); TOTAL PROTEIN 6.76 g/dL (6.3-8.2)
[2024-03-24 06:12] LABS: ANISOCYTOSIS NOT PRESENT (NOT PRESENT)
--- NOTE | 2024-03-24 09:22 | PCM.PROG ---
Date/Time Seen Date Seen by Provider: 03/24/24 Time Seen by Provider: 08:30 Provider Provider: KAITLYN ANDERSON, [facility] Chief Complaint Chief Complaint: PNA, HYPONATREMIA, ELEVATED LFTS Subjective Subjective: Feeling some better today. Began requiring oxygen yesterday evening. On 2L this am. Reports dyspnea on exertion. Cough is now productive. Objective Appearance: Positive No Apparent Distress and Alert and Oriented x3 Chest/Lungs: Positive Symmetrical With Equal Breath Sounds and Clear to Auscultation Bilaterally (diminished lower lobes) Heart: Positive RRR and Pulses Normal GI/: Positive Soft, Nontender, Bowel Sounds Normal and No Distention Musculoskeletal: Positive Not Examined Neurological: Positive Sensation Intact, Motor intact, Alert, Oriented and Muscle Strength 5/5 in Upper and Lower Extremities Bilaterally Vital Signs Vital Signs: Vital Signs: Last 24 Hours 03/23/24 10:00 03/23/24 10:00 03/23/24 11:00 Temperature 98.5 F Temperature Source Oral Pulse Rate 79 Respiratory Rate 18 Blood Pressure 117/67 Blood Pressure Mean 83 Blood Pressure Location Right Arm Blood Pressure Position Supine O2 Sat by Pulse Oximetry 91 L Oxygen Delivery Method Nasal Cannula Room Air Nasal Cannula Oxygen Flow Rate Telemetry Type Telemetry Monitoring Telemetry Heart Rate Telemetry SPO2 EKG NJ Interval EKG QRS Interval Telemetry Strip Reading 03/23/24 12:00 03/23/24 13:00 03/23/24 13:00 Temperature Temperature Source Pulse Rate Respiratory Rate Blood Pressure Blood Pressure Mean Blood Pressure Location Blood Pressure Position O2 Sat by Pulse Oximetry Oxygen Delivery Method Nasal Cannula Nasal Cannula Oxygen Flow Rate Telemetry Type Remote Telemetry Telemetry Monitoring Continues Telemetry Heart Rate 67 Telemetry SPO2 94 EKG NJ Interval 0.18 EKG QRS Interval 0.06 Telemetry Strip Reading NSR 03/23/24 14:00 03/23/24 14:00 03/23/24 15:00 Temperature 98.8 F Temperature Source Temporal Artery Scan Pulse Rate 75 Respiratory Rate 19 Blood Pressure 124/79 Blood Pressure Mean 94 Blood Pressure Location Left Arm Blood Pressure Position Supine O2 Sat by Pulse Oximetry 91 L Oxygen Delivery Method Nasal Cannula Nasal Cannula Nasal Cannula Oxygen Flow Rate 2 Telemetry Type Telemetry Monitoring Telemetry Heart Rate Telemetry SPO2 EKG NJ Interval EKG QRS Interval Telemetry Strip Reading 03/23/24 16:00 03/23/24 17:00 03/23/24 18:00 Temperature Temperature Source Pulse Rate Respiratory Rate Blood Pressure Blood Pressure Mean Blood Pressure Location Blood Pressure Position O2 Sat by Pulse Oximetry Oxygen Delivery Method Nasal Cannula Nasal Cannula Nasal Cannula Oxygen Flow Rate Telemetry Type Telemetry Monitoring Telemetry Heart Rate Telemetry SPO2 EKG NJ Interval EKG QRS Interval Telemetry Strip Reading 03/23/24 18:00 03/23/24 19:00 03/23/24 19:00 Temperature 98.6 F Temperature Source Temporal Artery Scan Pulse Rate 88 Respiratory Rate 17 Blood Pressure 125/67 Blood Pressure Mean 86 Blood Pressure Location Right Arm Blood Pressure Position O2 Sat by Pulse Oximetry 93 L Oxygen Delivery Method Nasal Cannula Nasal Cannula Oxygen Flow Rate 2 Telemetry Type Remote Telemetry Telemetry Monitoring Continues Telemetry Heart Rate 82 Telemetry SPO2 EKG NJ Interval 0.17 EKG QRS Interval 0.08 Telemetry Strip Reading SINUS RHYTHM 03/23/24 20:00 03/23/24 20:00 03/23/24 20:00 Temperature Temperature Source Pulse Rate Respiratory Rate 19 Blood Pressure Blood Pressure Mean Blood Pressure Location Blood Pressure Position O2 Sat by Pulse Oximetry 91 L Oxygen Delivery Method Nasal Cannula Nasal Cannula Nasal Cannula Oxygen Flow Rate 2 2 Telemetry Type Telemetry Monitoring Telemetry Heart Rate Telemetry SPO2 EKG NJ Interval EKG QRS Interval Telemetry Strip Reading 03/23/24 20:41 03/23/24 21:00 03/23/24 22:00 Temperature 99.1 F Temperature Source Temporal Artery Scan Pulse Rate 79 Respiratory Rate 18 Blood Pressure 123/70 Blood Pressure Mean 87 Blood Pressure Location Right Radial Artery Blood Pressure Position Supine O2 Sat by Pulse Oximetry 94 L Oxygen Delivery Method Nasal Cannula Nasal Cannula Nasal Cannula Oxygen Flow Rate 2 Telemetry Type Telemetry Monitoring Telemetry Heart Rate Telemetry SPO2 EKG NJ Interval EKG QRS Interval Telemetry Strip Reading 03/23/24 23:00 03/24/24 00:00 03/24/24 00:35 Temperature Temperature Source Pulse Rate Respiratory Rate Blood Pressure Blood Pressure Mean Blood Pressure Location Blood Pressure Position O2 Sat by Pulse Oximetry Oxygen Delivery Method Nasal Cannula Nasal Cannula Nasal Cannula Oxygen Flow Rate Telemetry Type Telemetry Monitoring Telemetry Heart Rate Telemetry SPO2 EKG NJ Interval EKG QRS Interval Telemetry Strip Reading 03/24/24 00:35 03/24/24 02:00 03/24/24 02:33 Temperature Temperature Source Pulse Rate Respiratory Rate Blood Pressure Blood Pressure Mean Blood Pressure Location Blood Pressure Position O2 Sat by Pulse Oximetry Oxygen Delivery Method Nasal Cannula Nasal Cannula Oxygen Flow Rate Telemetry Type Remote Telemetry Telemetry Monitoring Continues Telemetry Heart Rate 90 Telemetry SPO2 93 EKG NJ Interval 0.15 EKG QRS Interval 0.06 Telemetry Strip Reading SINUS RHYTHM 03/24/24 04:00 03/24/24 05:00 03/24/24 05:09 Temperature Temperature Source Pulse Rate Respiratory Rate Blood Pressure Blood Pressure Mean Blood Pressure Location Blood Pressure Position O2 Sat by Pulse Oximetry Oxygen Delivery Method Nasal Cannula Nasal Cannula Nasal Cannula Oxygen Flow Rate 2 Telemetry Type Telemetry Monitoring Telemetry Heart Rate Telemetry SPO2 EKG NJ Interval EKG QRS Interval Telemetry Strip Reading 03/24/24 05:30 03/24/24 05:51 03/24/24 07:00 Temperature 97.7 F Temperature Source Temporal Artery Scan Pulse Rate 67 Respiratory Rate 18 Blood Pressure 130/81 Blood Pressure Mean 97 Blood Pressure Location Left Arm Blood Pressure Position Supine O2 Sat by Pulse Oximetry 93 L Oxygen Delivery Method Nasal Cannula Nasal Cannula Nasal Cannula Oxygen Flow Rate 2 Telemetry Type Telemetry Monitoring Telemetry Heart Rate Telemetry SPO2 EKG NJ Interval EKG QRS Interval Telemetry Strip Reading 03/24/24 07:00 03/24/24 07:38 03/24/24 08:00 Temperature Temperature Source Pulse Rate Respiratory Rate Blood Pressure Blood Pressure Mean Blood Pressure Location Blood Pressure Position O2 Sat by Pulse Oximetry Oxygen Delivery Method Nasal Cannula Nasal Cannula Oxygen Flow Rate 2 Telemetry Type Remote Telemetry Telemetry Monitoring Continues Telemetry Heart Rate 75 Telemetry SPO2 EKG NJ Interval 0.14 EKG QRS Interval 0.06 Telemetry Strip Reading sr 03/24/24 08:51 03/24/24 09:13 Temperature Temperature Source Pulse Rate Respiratory Rate Blood Pressure Blood Pressure Mean Blood Pressure Location Blood Pressure Position O2 Sat by Pulse Oximetry Oxygen Delivery Method Nasal Cannula Nasal Cannula Oxygen Flow Rate Telemetry Type Telemetry Monitoring Telemetry Heart Rate Telemetry SPO2 EKG NJ Interval EKG QRS Interval Telemetry Strip Reading Lab Results Lab Results: Lab Results: Last 24 Hours 03/24/24 03/23/24 05:26 15:28 WBC 10.82 H RBC 4.04 L Hgb 11.1 L Hct 34.7 L MCV 85.9 MCH 27.5 MCHC 32.0 RDW Coeff of Olesya 14.4 Plt Count 306 Neutrophils % (Manual) 79.0 H Band Neutrophils % 5.0 Lymphocytes % (Manual) 8.0 L Monocytes % (Manual) 5.0 Reactive Lymphocytes 3.0 Anisocytosis Not present Sodium 136.2 134.3 L Potassium 4.04 3.59 Chloride 100.4 101.4 Carbon Dioxide 27.3 25.1 Anion Gap 12.54 11.39 BUN 9.7 6.6 L Creatinine 0.53 L 0.53 L Estimated GFR (MDRD) 121.00 121.00 BUN/Creatinine Ratio 18.30 12.45 Glucose 195.6 H 173.0 H Calcium 8.72 8.23 L Total Bilirubin 0.37 1.03 AST 302.1 H D 201.7 H D ALT 412.8 H D 277.6 H D Alkaline Phosphatase 331.0 H D 295.4 H D Total Protein 6.76 6.22 L Albumin 3.26 L 3.06 L Globulin 3.50 3.16 Albumin/Globulin Ratio 0.93 0.96 Procalcitonin 0.74 H Additional Comments Additional Comments: I have independently reviewed and interpreted the labs/EKGs/imaging ordered during this hospital stay. I have reviewed outside records that are available in our EMR that pertain to medical stay including imaging/notes/labs from previous visits. Active Medications Active Medications: Medications Generic Name Dose Route Start Last Admin Trade Name Freq PRN Reason Stop Dose Admin Acetaminophen 650 mg 03/23/24 06:34 03/24/24 08:02 Acetaminophen 325 Mg Tablet PO 650 mg Q4H PRN Administration Mild Pain Albuterol/Ipratropium 3 ml 03/23/24 08:35 03/24/24 05:32 Ipratropium/Albuterol Vial.Neb NEB 3 ml RTQ6H KIRK Administration Azithromycin 500 mg 03/23/24 09:00 03/24/24 08:02 Azithromycin 250 Mg Tablet PO 03/26/24 08:59 500 mg DAILY KIRK Administration Escitalopram Oxalate 20 mg 03/24/24 21:00 Escitalopram Oxalate 10 Mg Tablet PO BEDTIME KIRK CEFTRIAXONE/D5W 1 GM PREMIX 1 gm in 50 mls @ 100 mls/hr 03/23/24 11:00 03/24/24 08:02 Rocephin 1 Gm/50 Ml D5w IV 03/26/24 10:59 100 mls/hr DAILY KIRK Administration Ibuprofen 600 mg 12/21/24 09:20 Ibuprofen 600 Mg Tablet PO Q6H PRN Mild Pain Ketorolac Tromethamine 15 mg 03/23/24 09:20 03/24/24 05:40 Ketorolac Tromethamine 15 Mg/Ml Vial IVP 03/27/24 09:20 15 mg Q6HR PRN Administration Pain Levothyroxine Sodium 50 mcg 03/23/24 09:00 03/24/24 05:40 Levothyroxine Sodium 50 Mcg Tablet PO 50 mcg QDAC2 KIRK Administration Methylprednisolone Sodium Succinate 40 mg 03/23/24 13:00 03/24/24 05:40 Methylprednisolone Sod Succ/Pf 40 Mg/Ml Vial IVP 40 mg Q8HR KIRK Administration Non-Formulary Medication 20 mg 03/24/24 07:00 03/24/24 08:02 Dextroamphetamine-Amphetamine [Adderall] PO 20 mg 0700,1300 KIRK Administration Ondansetron HCl 4 mg 03/23/24 09:35 03/23/24 16:42 Ondansetron Hcl/Pf 4 Mg/2 Ml Sdv IVP 4 mg Q6H PRN Administration Nausea / Vomiting Sodium Chloride 1 syr 03/24/24 13:00 0.9% Sodium Chloride 10 Ml Disp.Syrin IVF Q8HR KIRK Trazodone HCl 50 mg 03/23/24 21:00 03/23/24 20:23 Trazodone Hcl 50 Mg Tablet PO 50 mg BEDTIME KIRK Administration Plan Plan: 1. Acute Hypoxic Respiratory Failure in setting of CAP - wean oxygen as tolerated, steroids nebs 2. Community Acquired Pneumonia - rocephin, azith, steroids, nebs, checking strep pneumo, MRSA, and legionella; will culture sputum when patient begins expectorating 3. Pleural effusion - no previous imaging noted; htn in past but not on medications now; giving 1 dose of lasix due to chest pressure, chest pressure resolved, recommend repeat CT scan in 1 month and possible echo outpatient 4. Hyponatremia - Resolved, stop IV fluids 5. Acute Transaminitis - likely due to #2, mildly improved, denies pain, trend and monitor 6. Anxiety/Depression/ADHD - chronic, continue home medications DVT Prophylaxis: Ambulation Review Statement Review Statement: I have personally discussed and reviewed the patient's visit/currently labs/imaging/decision making with Dr. Grajeda, my supervising attending. Greater that 50 minutes spent with patient, 50% of the time spent with this patient was devoted to counseling and coordination of care.
[2024-03-24] MEDS: MOTRIN PO PRN (10:41)
[2024-03-24] MEDS: LEXAPRO PO SCH (20:41)
[2024-03-25 05:16] VITALS: BP 170/90; PULSE 82; RESP 20; TEMP 98.6
[2024-03-25 06:06] LABS: ALANINE AMINOTRANSFERASE 321.8 U/L (0-35); ALBUMIN 3.36 g/dL (3.5-5.0); ALKALINE PHOSPHATASE 286.9 U/L (38-126); ASPARTATE AMINO TRANSFERASE 86.8 U/L (14-36); BILIRUBIN,TOTAL 0.32 mg/dL (0.2-1.3); BLOOD UREA NITROGEN 14.8 mg/dL (7-17); CALCIUM 8.65 mg/dL (8.4-10.2); CARBON DIOXIDE 24.1 mmol/L (22-30.0); CHLORIDE 98.7 mmol/L (98-107); CREATININE 0.57 mg/dL (0.60-1.30); GLUCOSE 233.1 mg/dL (74-106); POTASSIUM 3.68 mmol/L (3.5-5.1); SODIUM 134.2 mmol/L (134.5-145); TOTAL PROTEIN 6.85 g/dL (6.3-8.2)
[2024-03-25 06:08] LABS: HEMATOCRIT 33.3 % (37.0-47.0); MEAN CORPUSCULAR HEMOGLOBIN 27.8 pg (27.0-31.0); MEAN CORPUSCULAR VOLUME 84.3 fl (81.0-99.0); RDW COEFFICIENT OF VARIATION 14.5 % (11.6-14.8); RED BLOOD COUNT 3.95 10^6/ul (4.20-5.40)
[2024-03-25 06:31] LABS: WHITE BLOOD COUNT 19.46 K/ul (4.6-10.2)
[2024-03-25 06:32] LABS: ANISOCYTOSIS NOT PRESENT (NOT PRESENT); PLATELET COUNT 423 10^3/uL (140-440)
--- NOTE | 2024-03-25 09:10 | DCSUM ---
Admission Date Admission Date: 03/23/24 Discharge Date Discharge Date: 03/25/24 Admission Diagnosis Admission Diagnosis: 1. Community Acquired Pneumonia 2. Pleural effusion 3. Hyponatremia 4. Acute Transaminitis 5. Anxiety/Depression/ADHD Discharge Diagnosis Discharge Diagnosis: 1. Acute Hypoxic Respiratory Failure in setting of CAP - Resolved 2. Community Acquired Pneumonia - Improving 3. Pleural effusion - Recommend repeat CT scan in 1 month 4. Hyponatremia - Resolved 5. Acute Transaminitis - Improving 6. Anxiety/Depression/ADHD - Chronic, stable Hospital Provider Hospital Provider: KAITLYN ANDERSON, [facility] Primary [facility] Physician Primary Care Physician: HARIKA BROOKS Summary of History and Physical Summary of History and Physical: 53 yo female presented to the ER with complaints of fever, shortness of breath, cough, body aches, and chest pressure when she takes a breath. States that she went to [place] 4-5 days ago and has been sick since. States cough is nonproductive and just blanco in her chest. Fever has been as high as 101. Treated with tylenol. Found to have R upper lobe pneumonia on chest x-ray and new small pleural effusion on the left. Has taken BP medication in the past for htn but does not currently. No history of HF. Admitted to med/surg observation Hospital Course Subjective: During stay, patient was treated for pneumonia with rocephin, azith, steroids, and nebs. She initially did not require oxygen but began on second night of stay requiring 2L. She was weaned to RA and tolerating well. O2 sat remaining above 94%. Procalcitonin elevated initially and trending down. MRSA, strep pneumo, legionella, and sputum cultures pending. Mildly hyponatremic initially. Received IV fluids and returned to normal level. Liver enzymes elevated and likely due to pneumonia. No abdominal pain/vomiting. Levels trending down. Recommend repeat labs within a couple weeks. Of note, pleural effusion noted on imaging. No s/sx of overload at this time. No cardiac history including htn. Likely incidental finding. Recommend repeat CT scan in 1 month. Rx sent for augmentin and prednisone. Completed course of azith during stay. follow-up with pcp next week. Appearance: Pleasant, No Apparent Distress and Alert HEENT: MMM, Supple and No JVD CVS: No Murmur and No Rubs Abdomen: Soft, Non-Tender and No Distention Respiratory: No Dyspnea Extremities: No Edema Vital Signs: Most Recent Vital Signs Temperature 98.6 F 03/25/24 05:14 Temperature Source Temporal Artery Scan 03/25/24 05:14 Temperature Source Temporal Artery Scan 03/23/24 01:07 Pulse Rate 82 03/25/24 05:14 Respiratory Rate 20 03/25/24 05:14 Blood Pressure 170/90 H 03/25/24 05:14 Blood Pressure Mean 116 03/25/24 05:14 Blood Pressure Left Arm 129/71 03/23/24 04:47 Blood Pressure Location Right Arm 03/25/24 05:14 Blood Pressure Position Sitting 03/25/24 05:14 O2 Sat by Pulse Oximetry 97 03/25/24 05:14 Oxygen Delivery Method Nasal Cannula 03/25/24 08:00 Oxygen Flow Rate 2 03/25/24 08:00 Height 5 ft 7 in 03/23/24 04:47 Weight 117.2 kg 03/23/24 04:47 Telemetry Type Remote Telemetry 03/24/24 13:00 Telemetry Monitoring Continues 03/24/24 13:00 Telemetry Heart Rate 79 03/24/24 13:00 Telemetry SPO2 93 03/24/24 00:35 EKG KS Interval 0.13 03/24/24 13:00 EKG QRS Interval 0.04 L 03/24/24 13:00 Telemetry Strip Reading refuses 03/25/24 01:00 Imaging: EXAM: CTA CHEST FINDINGS: Postcontrast helical imaging was obtained through the thorax utilizing 1.2-mm collimation. Sagittal and coronal reconstructions were imaged and reviewed. There are subcentimeter prevascular and pretracheal lymph nodes. There is a 12 mm right hilar lymph node. Subcarinal lymphadenopathy measures upwards of 1.6 cm. The ascending aorta is ectatic measuring 3.4 cm. There is no evidence of pulmonary embolus. There is a small right pleural effusion which extends into the fissure with adjacent consolidation . Peripheral consolidation is seen within the left upper lobe and lingula. . Consolidation/atelectasis is seen predominately in the right middle with milder changes in the lower lobe.. Bone windows reveals no lytic or blastic lesions. IMPRESSION: No evidence of pulmonary embolus. Small right pleural effusion with fissural extension. Mild adjacent consolidation/pneumonia Peripheral consolidation/pneumonia seen within the left upper lobe and lingula. Consolidation/atelectasis seen predominately in the right middle lobe with mild lower lobe changes. Mediastinal and hilar lymphadenopathy likely reactive in nature. EXAM: TWO-VIEW CHEST FINDINGS / impression:: The cardiomediastinal silhouette is normal.. Peripheral consolidation is seen within the lingula. There is a small right pleural effusion. Dense consolidation is seen within the right middle lobe and lower lobe. No acute osseous abnormalities. Lab Results Last 24 Hours: 03/25/24 05:40 WBC 19.46 H D RBC 3.95 L Hgb 11.0 L Hct 33.3 L MCV 84.3 MCH 27.8 MCHC 33.0 RDW Coeff of Olesya 14.5 Plt Count 423 D Neutrophils % (Manual) 78.0 H Band Neutrophils % 2.0 Lymphocytes % (Manual) 5.0 L Monocytes % (Manual) 8.0 Reactive Lymphocytes 7.0 H Anisocytosis Not present Sodium 134.2 L Potassium 3.68 Chloride 98.7 Carbon Dioxide 24.1 Anion Gap 15.08 BUN 14.8 Creatinine 0.57 L Estimated GFR (MDRD) 111.00 BUN/Creatinine Ratio 25.96 Glucose 233.1 H Calcium 8.65 Total Bilirubin 0.32 AST 86.8 H D ALT 321.8 H D Alkaline Phosphatase 286.9 H D Total Protein 6.85 Albumin 3.36 L Globulin 3.49 Albumin/Globulin Ratio 0.96 Procalcitonin 0.48 H Discharge Instructions Discharge Planning: Discharge Planning > 40 minutes If patient is discharged with left ventricular systolic dysfunction: NA Discharged with a beta omar? [] If no, why not? [] Discharged with an debby/arb? [] If no, why not? [] Diagnosis: Pneumonia Diet: Regular diet Activity: as tolerated Medications: Josh Follow-up with PCP this week. Discharge Medications: Medications at Discharge (Home Meds & RX) levothyroxine 50 mcg tablet (Synthroid) 50 mcg PO DAILY #90 tab-caps 07/20/17 folic acid 1 mg tablet 1 mg PO QDAY 02/13/20 berberine chloride 500 mg capsule 500 mg PO DAILY 01/25/24 dextroamphetamine-amphetamine 20 mg tablet (Adderall) 20 mg PO BID #60 tabs 01/25/24 escitalopram oxalate 20 mg tablet 20 mg PO QDAY #30 tabs 01/25/24 magnesium 200 mg tablet 200 mg PO QDAY 01/25/24 vitamin [id number] B1 1,000 mcg-100 mg/mL injection solution 1 ml IM WEEKLY 01/25/24 trazodone 50 mg tablet 50 mg PO QHS 03/23/24 Discharge Plan Discharge Discharge Orders: Discharge Patient (ONCE); Ordered 03/25/24 Ordered By: TERRY BAIRD Activity Restrictions/Additional Instructions: Diagnosis: Pneumonia Diet: Regular diet Activity: as tolerated Medications: Josh Follow-up with PCP this week. Instructions: Community Acquired Pneumonia (DC) Care Plan Goals: Problem: Infection Goal #1: No signs/symptoms of infection Instructions: Monitor for sign/symptoms of infection Monitor temperature Goal #2: White blood cell counts Within Normal Limits Instructions: Obtain labs per physician orders Problem: Impaired Respiratory Status Goal: Exhibit optimal respiratory function Instructions: Activities as tolerated Apply oxygen as ordered Elevate head of bed Notify MD of increased congestion Patient Disposition: HOME SELF-CARE Prescriptions: New amoxicillin-pot clavulanate 875-125 mg tablet 1 tab PO BID 3 Days Qty: 6 0RF prednisone 10 mg tablet 10 mg PO DAILY Qty: 2 0RF Continued levothyroxine [Synthroid] 50 MCG tablet 50 mcg PO DAILY Qty: 90 trazodone 50 mg tablet 50 mg PO QHS folic acid 1 mg tablet 1 mg PO QDAY vitamin [id number] B1 1,000-100 mg/mL solution 1 ml IM WEEKLY berberine chloride 500 mg capsule 500 mg PO DAILY magnesium 200 mg tablet 200 mg PO QDAY dextroamphetamine-amphetamine [Adderall] 20 mg tablet 20 mg PO BID Qty: 60 0RF escitalopram oxalate 20 mg tablet 20 mg PO QDAY Qty: 30 2RF Did you review [place] [employer] for ALL controlled substances?: No Discussed opioids are addictive and Narcan is available by prescription or from pharmacy.: No Condition: Good Referrals: HARIKA BROOKS [Primary Care Provider] - 04/06/24 4:00 pm
[2024-03-26 15:11] LABS: SPECIMEN SOURCE Urine (.); STEP PNEUMO ORGANISM ID Not indicated. (.); STREP PNEUMO AG Negative (Negative); STREP PNEUMO BODY FLUID CULT Not indicated. (.)
== END 2024-03-25 11:37 | disposition home or self-care (01) ==
LOC: ED 01:05 → MEDSURG B 01:05
PROVIDERS: ADMIT Hospitalist; ATTEND Nurse Practitioner Family
DX: J18.9 Pneumonia, unspecified organism; J96.01 Acute respiratory failure with hypoxia; F41.9 Anxiety disorder, unspecified; Z20.822 Contact with and (suspected) exposure to COVID-19; Z51.81 Encounter for therapeutic drug level monitoring; R74.01 Elevation of levels of liver transaminase levels; J90 Pleural effusion, not elsewhere classified; Z79.899 Other long term (current) drug therapy; F32.A Depression, unspecified; E87.1 Hypo-osmolality and hyponatremia; F90.9 Attention-deficit hyperactivity disorder, unspecified type